=== PATIENT | female | born 1940 | race African-American/Black ===

== ENCOUNTER 2017-11-11 12:01 | Inpatient (IN) | payer MEDICARE, MEDICAID ==
[~2017-11-11] VITALS: Ht 160 cm; Wt 49.9 kg
[2017-11-11] MEDS ORDERED: ACETAMINOPHEN 325MG TABLET PO STA (12:25)
[2017-11-11] MEDS ORDERED: KETOROLAC 30MG/ML VIAL IV STA (12:25)
[2017-11-11] MEDS ORDERED: SODIUM CHLORIDE 0.9% 1000ML BAG (SEPSIS BOLUS) IV ONE (12:30)
[2017-11-11] MEDS ORDERED: ACETAMINOPHEN 325MG SUPP PR ONE (13:00)
[2017-11-11 13:05] LABS: CLARITY URINE TURBID (CLEAR); COLOR URINE DARK YELLOW (YELLOW); KETONES URINE NEGATIVE (NEGATIVE); LEUKOCYTE ESTERASE URINE 2+ (NEGATIVE); NITRITE URINE NEGATIVE (NEGATIVE); OCCULT BLOOD URINE 1+ (NEGATIVE); PH URINE 5.5 (4.5-8.0); PROTEIN URINE TRACE (NEGATIVE); SPECIFIC GRAVITY URINE 1.019 (1.005-1.030); UROBILINOGEN URINE 0.2 E.U./dL (0.2-1.0)
[2017-11-11] MEDS ORDERED: CEFEPIME 1,000 MG in DEXTROSE 5% WATER 50 ML IV STA (14:35)
[2017-11-11] MEDS ORDERED: VANCOMYCIN 1 G PREMIX 200 ML IV STA (14:35)
[2017-11-11 14:57] LABS: CHLORIDE 109 mEq/L (98-107); HEMATOCRIT. 29.3 % (36.0-48.0); HEMOGLOBIN. 9.2 g/dL (12.0-16.0); MEAN CORPUSCULAR HEMOGLOBIN 31.4 pg (28.0-32.0); MEAN CORPUSCULAR VOLUME 99.8 fL (81.0-99.0); MEAN PLATELET VOLUME 8.4 fl (7.4-10.4); PLATELET 251 x1000/uL (130-400); RED BLOOD CELL COUNT 2.93 mill/uL (4.2-5.4); RED CELL DISTRIBUTION WIDTH 20.3 % (11.6-14.6)
[2017-11-11 14:58] LABS: INR 2.7; PROTHROMBIN TIME 26.8 sec (9.1-11.1)
[2017-11-11 15:08] LABS: AMMONIA 38 uMol/L (<32)
[2017-11-11 15:53] LABS: NUCLEATED RED BLOOD CELLS 7 /100 WBC; PLATELET ESTIMATE NORMAL
[2017-11-11 21:15] VITALS: BP 125/61
[2017-11-11] MEDS: SODIUM CHLORIDE 0.9% 1,000 ML IV SCH (23:06)
[2017-11-12] VITALS (7 sets, daily range): BP systolic 110–143; BP diastolic 51–73
[2017-11-12 07:14] LABS: HEMATOCRIT. 29.4 % (36.0-48.0); HEMOGLOBIN. 9.3 g/dL (12.0-16.0); MEAN CORPUSCULAR HEMOGLOBIN 31.3 pg (28.0-32.0); MEAN CORPUSCULAR VOLUME 99.2 fL (81.0-99.0); MEAN PLATELET VOLUME 8.5 fl (7.4-10.4); PLATELET 234 x1000/uL (130-400); RED BLOOD CELL COUNT 2.96 mill/uL (4.2-5.4); RED CELL DISTRIBUTION WIDTH 20.4 % (11.6-14.6)
[2017-11-12] MEDS: SODIUM CHLORIDE 0.9% 1,000 ML IV SCH ×3 (08:30→23:00)
[2017-11-12] MEDS: CEFEPIME 1,000 MG in DEXTROSE 5% WATER 50 ML IV SCH (15:15)
[2017-11-12] MEDS: PANTOPRAZOLE SODIUM 40 MG/VIAL IV SCH (16:23)
[2017-11-12 17:18] LABS: AMMONIA 11 uMol/L (<32)
[2017-11-12 20:40] LABS: NUCLEATED RED BLOOD CELLS 7 /100 WBC; PLATELET ESTIMATE NORMAL
[2017-11-13] VITALS: BP_SYST 116; BP_SYST 125; BP_DIAS 56; BP_DIAS 65
[2017-11-13 04:00] VITALS: BP 102/50
[2017-11-13] MEDS: SODIUM CHLORIDE 0.9% 1,000 ML IV SCH (07:00)
[2017-11-13 07:32] LABS: HEMATOCRIT. 29.5 % (36.0-48.0); HEMOGLOBIN. 9.3 g/dL (12.0-16.0); MEAN CORPUSCULAR HEMOGLOBIN 31.7 pg (28.0-32.0); MEAN CORPUSCULAR VOLUME 100.4 fL (81.0-99.0); MEAN PLATELET VOLUME 8.7 fl (7.4-10.4); PLATELET 244 x1000/uL (130-400); RED BLOOD CELL COUNT 2.94 mill/uL (4.2-5.4); RED CELL DISTRIBUTION WIDTH 23.3 % (11.6-14.6)
[2017-11-13 07:51] LABS: CHLORIDE 112 mEq/L (98-107)
[2017-11-13 08:00] VITALS: BP 106/52
[2017-11-13 08:07] LABS: PHOSPHORUS 3.3 mg/dL (2.5-4.9)
[2017-11-13 08:24] LABS: BG BASE EXCESS -14.2 mmol/L (-2.0-2.0); BG CARBOXYHEMOGLOBIN 1.3 % (0.5-1.5); BG DEOXYHEMOGLOBIN 4.1 % (0.0-5.0); BG HCO3 ACT 11.3 mmol/L (22.0-26.0); BG OXYGEN SATURATION 95.8 % (92.0-98.5); BG OXYHEMOGLOBIN 94.6 % (94.0-97.0); BG PCO2 25.2 mmHg (35.0-45.0); BG PH 7.269 (7.350-7.450); BG PO2 90.4 mmHg (75.0-100.0); BG SAMPLE SITE RIGHT BRACHIAL; BG TOTAL HEMOGLOBIN 8.4 g/dL (12.0-18.0); BG VENT MODE NASAL CANNULA
[2017-11-13 08:50] LABS: T4 FREE 1.43 ng/dL (0.76-1.46)
[2017-11-13] MEDS: PANTOPRAZOLE SODIUM 40 MG/VIAL IV SCH (09:30)
[2017-11-13 09:48] LABS: AMMONIA 45 uMol/L (<32)
[2017-11-13 10:11] LABS: VITAMIN B12 SERUM > 2000.0 pg/mL (211-911)
[2017-11-13] MEDS ORDERED: SODIUM BICARBONATE 5MEQ SYR 150 MEQ in DEXTROSE 5% WATER 1,000 ML IV SCH (10:30)
[2017-11-13 12:14] VITALS: BP 81/31
[2017-11-13 13:07] LABS: NUCLEATED RED BLOOD CELLS 11 /100 WBC
[2017-11-13 13:08] LABS: PLATELET ESTIMATE NORMAL
[2017-11-13] MEDS ORDERED: MORPHINE SULFATE 4 MG/ML CPJ (NOT FOR IM USE) IV SCH ×3 (13:35→20:00)
[2017-11-13] MEDS ORDERED: SODIUM CHLORIDE 0.9% 1,000 ML IV SCH (13:45)
[2017-11-13] MEDS: CEFEPIME 1,000 MG in DEXTROSE 5% WATER 50 ML IV SCH (14:44)
[2017-11-13] MEDS ORDERED: VANCOMYCIN 1 G PREMIX 200 ML IV NR (15:00)
[2017-11-13 15:51] VITALS: BP 62/29
[2017-11-13] MEDS: LORAZEPAM 2MG/ML CPJ IV PRN ×2 (16:09→20:10)
[2017-11-13 20:10] VITALS: BP 70/28
== END 2017-11-13 23:04 | disposition expired | DRG 871 ==
LOC: ER 12:01 → 8WST 14:40 → EDBEDREQ 14:44 → EDBEDREQSVC 14:44 → EDBEDREQTM 14:44 → ENRESERV 19:39
PROVIDERS: ADMIT Internal Medicine; ATTEND Internal Medicine
DX: A41.50 Gram-negative sepsis, unspecified (principal); J18.9 Pneumonia, unspecified organism; E43 Unspecified severe protein-calorie malnutrition; G92 Toxic encephalopathy; J96.91 Respiratory failure, unspecified with hypoxia; N17.0 Acute kidney failure with tubular necrosis; N39.0 Urinary tract infection, site not specified; D68.9 Coagulation defect, unspecified; C78.7 Secondary malignant neoplasm of liver and intrahepatic bile duct; C19 Malignant neoplasm of rectosigmoid junction; K92.2 Gastrointestinal hemorrhage, unspecified; R18.8 Other ascites; C78.00 Secondary malignant neoplasm of unspecified lung; E87.2 Acidosis; I67.82 Cerebral ischemia; Z68.1 Body mass index [BMI] 19.9 or less, adult; Z66 Do not resuscitate; R65.20 Severe sepsis without septic shock; E87.8 Other disorders of electrolyte and fluid balance, not elsewhere classified; I10 Essential (primary) hypertension; Z51.5 Encounter for palliative care; Z82.49 Family history of ischemic heart disease and other diseases of the circulatory system; Z90.49 Acquired absence of other specified parts of digestive tract; Z92.21 Personal history of antineoplastic chemotherapy
CPT/HCPCS: 36415; 36600; 51702; 70450; 71045; 74176; 76770; 80048; 80053; 80202; 81003; 82140; 82375; 82607; 82746; 82805; 83036; 83605; 83735; 84100; 84145; 84439; 84443; 84481; 85025; 85610; 87040; 87077; 87086; 87186; 93005; 96365; 96366; 96367; 99291; A6261; C9113; J0692; J1885; J2060; J2270; J3370; J3490; J7030; J7060; J7070